=== PATIENT | male | born 1955 | race Caucasian/White ===

== ENCOUNTER 2021-07-17 21:53 | Emergency (ER) | payer OTHER ==
[2021-07-17] MEDS ORDERED: Bacitracin Oint 1 GM U/D Packet TOP ONE (21:59)
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
== END 2021-07-17 23:28 | disposition home or self-care (01) ==
LOC: JP.ED 21:53
DX: S20.214A Contusion of middle front wall of thorax, initial encounter (principal); S60.419A Abrasion of unspecified finger, initial encounter; V89.2XXA Person injured in unspecified motor-vehicle accident, traffic, initial encounter; Y92.410 Unspecified street and highway as the place of occurrence of the external cause
CPT/HCPCS: 71045; 99284-25